=== PATIENT | female | born 1990 | race Two or more races ===

== ENCOUNTER 2018-02-14 05:20 | Emergency (ER) | payer BC ==
[~2018-02-14] VITALS: Ht 165.1 cm; Wt 77.1 kg
[2018-02-14 05:25] VITALS: BP 161/99
[2018-02-14] MEDS ORDERED: ACETAMINOPHEN 325 MG TAB PO ONE (05:45)
[2018-02-14] MEDS ORDERED: KETOROLAC TROMETH 60MG/2ML VIAL IM ONE (06:30)
[2018-02-14] MEDS ORDERED: METHOCARBAMOL 500 MG TAB PO ONE (06:30)
== END 2018-02-14 07:15 | disposition home or self-care (01) ==
LOC: EDBD 05:20 → ER 05:27
DX: S80.01XA Contusion of right knee, initial encounter (principal); M54.5 Low back pain
CPT/HCPCS: 73560; 96372; 99284; J1885